=== PATIENT | male | born 1970 | race Caucasian/White ===

== ENCOUNTER 2017-05-27 17:35 | Inpatient (IN) | payer MEDICAID, OTHER ==
[2017-05-27] MEDS: ONDANSETRON 4 MG INJ IV (19:56)
[2017-05-27] MEDS: DEXAMETHASONE 10 MG/ML 1 ML INJ IV (19:56)
[2017-05-27] MEDS: morphine 10 MG INJ IV (19:56)
[2017-05-27] MEDS: SODIUM CHLORIDE 0.9% 1L BAG IV* (19:56)
[2017-05-27 20:38] LABS: ADD MAN DIFF? NO
[2017-05-27 20:40] LABS: BASOPHILS % 0.3 % (0.0-2.0); EOSINOPHILS % 0.1 % (0.0-7.0); HEMATOCRIT 38.6 % (42.0-52.0); HEMOGLOBIN 12.9 g/dl (14.0-18.0); LYMPHOCYTES # 0.8 10^3/ul (0.8-2.9); LYMPHOCYTES % 7.5 % (15.0-51.0); MEAN CORPUSCULAR HEMOGLOBIN 27.8 pg (29.0-33.0); MEAN CORPUSCULAR HGB CONC 33.4 g/dl (32.0-37.0); MEAN CORPUSCULAR VOLUME 83.2 fl (82.0-101.0); MEAN PLATELET VOLUME 10.2 fl (7.4-10.4); MONOCYTE # 0.8 10^3/ul (0.3-0.9); NEUTROPHIL # 9.3 10^3/ul (1.6-7.5); NEUTROPHILS % 84.5 % (39.0-77.0); PLATELET COUNT 313 10^3/UL (140-415); RED BLOOD COUNT 4.64 10^6/ul (4.70-6.10); RED CELL DISTRIBUTION WIDTH 11.5 % (11.5-14.5)
[2017-05-27] MEDS: IOHEXOL 300MG/ML 150 ML BTL (20:50)
[2017-05-27] MEDS: SOD CHLORIDE 0.9% 100 ML (20:50)
[2017-05-27 20:56] LABS: LACTIC ACID 1.1 mmol/L (0.5-2.0)
[2017-05-27 20:56] LABS: INR 0.99; PARTIAL THROMBOPLASTIN TIME 26.1 Sec (25.0-35.0); PROTIME 13.2 Sec (11.9-14.9)
[2017-05-27 21:06] LABS: ALANINE AMINOTRANSFERASE 30 IU/L (13-69); ALBUMIN 3.1 g/dl (3.3-4.9); ALBUMIN/GLOBULIN RATIO 0.77; ALKALINE PHOSPHATASE 123 IU/L (42-121); ANION GAP 18 (8-16); ASPARTATE AMINO TRANSFERASE 21 IU/L (15-46); BILIRUBIN,INDIRECT 0.1 mg/dl (0-1.1); BILIRUBIN,TOTAL 0.1 mg/dl (0.2-1.3); BLOOD UREA NITROGEN 21 mg/dl (7-20); CALCIUM 8.1 mg/dl (8.4-10.2); CARBON DIOXIDE 19 mmol/L (21-31); CHLORIDE 98 mmol/L (97-110); CREATININE 0.64 mg/dl (0.61-1.24); GLUCOSE 366 mg/dl (70-220); POTASSIUM 4.3 mmol/L (3.5-5.1); SODIUM 131 mmol/L (135-144); TOTAL PROTEIN 7.1 g/dl (6.1-8.1)
[2017-05-27] MEDS: AMPICILLIN/SULB 3 GM/NS (PMX) 100 ML IVPB (21:10)
[2017-05-27 21:19] LABS: TROPONIN-I < 0.012 ng/ml (0.00-0.12)
[2017-05-27] MEDS: LIDOCAINE 2%/EPI MPF (SDV) 20 ML VIAL INJ (22:23)
[2017-05-27 23:48] LABS: LACTIC ACID 0.9 mmol/L (0.5-2.0)
[2017-05-28] MEDS ORDERED: ONDANSETRON 4 MG INJ IV (00:30)
[2017-05-28] MEDS ORDERED: ALBUTEROL/IPRATROPIUM (NEB) 3 ML AMP NEB (00:30)
[2017-05-28] MEDS ORDERED: DEXTROSE 50% 50 ML SYRINGE IV ×2 (00:30)
[2017-05-28] MEDS ORDERED: GLUCOSE GEL 15 GRAM TUBE PO ×2 (00:30)
[2017-05-28] MEDS ORDERED: GLUCAGON 1 MG INJ IM (00:30)
[2017-05-28] MEDS ORDERED: GLUCOSE GEL 15 GRAM TUBE BUCCAL (00:30)
[2017-05-28] MEDS: SOD CHLORIDE 0.9% 1,000 ML IV (01:20)
[2017-05-28] MEDS: CLINDAMYCIN 600 MG/D5W (PMX) 50 ML IVPB (02:20)
[2017-05-28] MEDS: morphine 2 MG INJ IV ×4 (02:21→17:44)
[2017-05-28] MEDS: INSULIN ASPART [NOVOLOG] 3 ML PEN SC ×9 (02:24→20:49)
[2017-05-28] MEDS: INSULIN GLARGINE [LANtus] 3 ML PEN SC ×2 (02:25→20:42)
[2017-05-28] MEDS: ACCU-CHEK XX (02:33)
[2017-05-28 05:20] LABS: ADD MAN DIFF? NO
[2017-05-28] MEDS: DEXAMETHASONE 10 MG/ML 1 ML INJ IV ×2 (05:30→12:08)
[2017-05-28 05:37] LABS: BASOPHILS % 0.1 % (0.0-2.0); HEMATOCRIT 35.2 % (42.0-52.0); LYMPHOCYTES % 9.6 % (15.0-51.0); MEAN CORPUSCULAR HEMOGLOBIN 28.2 pg (29.0-33.0); MEAN CORPUSCULAR HGB CONC 34.1 g/dl (32.0-37.0); MEAN CORPUSCULAR VOLUME 82.6 fl (82.0-101.0); MEAN PLATELET VOLUME 10.5 fl (7.4-10.4); MONOCYTE # 0.2 10^3/ul (0.3-0.9); MONOCYTES % 2.1 % (0.0-11.0); NEUTROPHIL # 8.7 10^3/ul (1.6-7.5); NEUTROPHILS % 87.4 % (39.0-77.0); PLATELET COUNT 310 10^3/UL (140-415); RED BLOOD COUNT 4.26 10^6/ul (4.70-6.10); RED CELL DISTRIBUTION WIDTH 11.5 % (11.5-14.5)
[2017-05-28 05:37] LABS: WHITE BLOOD COUNT 9.9 10^3/ul (4.8-10.8)
[2017-05-28 05:52] LABS: ALANINE AMINOTRANSFERASE 30 IU/L (13-69); ALBUMIN 2.9 g/dl (3.3-4.9); ALBUMIN/GLOBULIN RATIO 0.72; ALKALINE PHOSPHATASE 107 IU/L (42-121); ANION GAP 16 (8-16); ASPARTATE AMINO TRANSFERASE 17 IU/L (15-46); BILIRUBIN,INDIRECT 0.1 mg/dl (0-1.1); BILIRUBIN,TOTAL 0.1 mg/dl (0.2-1.3); BLOOD UREA NITROGEN 18 mg/dl (7-20); CALCIUM 8.2 mg/dl (8.4-10.2); CARBON DIOXIDE 23 mmol/L (21-31); CHLORIDE 102 mmol/L (97-110); CREATININE 0.71 mg/dl (0.61-1.24); GLUCOSE 334 mg/dl (70-220); POTASSIUM 4.5 mmol/L (3.5-5.1); SODIUM 136 mmol/L (135-144); TOTAL PROTEIN 6.9 g/dl (6.1-8.1)
[2017-05-28] MEDS: CEFEPIME 1GM/50 ML (PMX) 50 ML IVPB ×2 (08:18→20:40)
[2017-05-28 16:08] LABS: HEMOGLOBIN A1C 12.4 % (0-5.9)
[2017-05-28 21:24] LABS: GLUCOSE 521 mg/dl (70-220)
[2017-05-29] MEDS: morphine 2 MG INJ IV ×6 (01:33→20:25)
[2017-05-29] MEDS: ACCU-CHEK XX (03:10)
[2017-05-29] MEDS: INSULIN ASPART [NOVOLOG] 3 ML PEN SC ×8 (03:52→20:49)
[2017-05-29 04:09] LABS: GLUCOSE 435 mg/dl (70-220)
[2017-05-29] MEDS ORDERED: IOHEXOL 300MG/ML 150 ML BTL (08:18)
[2017-05-29] MEDS ORDERED: SOD CHLORIDE 0.9% 100 ML (08:18)
[2017-05-29] MEDS: CEFEPIME 1GM/50 ML (PMX) 50 ML IVPB (09:25)
[2017-05-29] MEDS ORDERED: morphine 2 MG INJ IV (14:30)
[2017-05-29] MEDS: AMOXICILLIN/CLAV 875 MG TAB PO (20:43)
[2017-05-29] MEDS: INSULIN GLARGINE [LANtus] 3 ML PEN SC (20:48)
[2017-05-30] MEDS: morphine 2 MG INJ IV ×6 (00:49→20:28)
[2017-05-30] MEDS: ACCU-CHEK XX (01:19)
[2017-05-30 06:09] LABS: ADD MAN DIFF? NO
[2017-05-30 06:15] LABS: WHITE BLOOD COUNT 8.4 10^3/ul (4.8-10.8)
[2017-05-30 06:15] LABS: BASOPHILS % 0.5 % (0.0-2.0); EOSINOPHILS # 0.2 10^3/ul (0.0-0.5); EOSINOPHILS % 2.5 % (0.0-7.0); HEMATOCRIT 32.8 % (42.0-52.0); HEMOGLOBIN 11.2 g/dl (14.0-18.0); LYMPHOCYTES # 2.8 10^3/ul (0.8-2.9); LYMPHOCYTES % 33.3 % (15.0-51.0); MEAN CORPUSCULAR HEMOGLOBIN 28.1 pg (29.0-33.0); MEAN CORPUSCULAR HGB CONC 34.1 g/dl (32.0-37.0); MEAN CORPUSCULAR VOLUME 82.4 fl (82.0-101.0); MEAN PLATELET VOLUME 10.4 fl (7.4-10.4); MONOCYTE # 0.9 10^3/ul (0.3-0.9); MONOCYTES % 10.5 % (0.0-11.0); NEUTROPHIL # 4.3 10^3/ul (1.6-7.5); NEUTROPHILS % 51.2 % (39.0-77.0); PLATELET COUNT 316 10^3/UL (140-415); RED BLOOD COUNT 3.98 10^6/ul (4.70-6.10); RED CELL DISTRIBUTION WIDTH 11.9 % (11.5-14.5)
[2017-05-30 08:10] LABS: ANION GAP 12 (8-16); BLOOD UREA NITROGEN 16 mg/dl (7-20); CALCIUM 7.9 mg/dl (8.4-10.2); CARBON DIOXIDE 32 mmol/L (21-31); CHLORIDE 100 mmol/L (97-110); CREATININE 0.64 mg/dl (0.61-1.24); GLUCOSE 203 mg/dl (70-220); MAGNESIUM 1.8 mg/dl (1.7-2.5); PHOSPHORUS 3.7 mg/dl (2.5-4.9); POTASSIUM 4.2 mmol/L (3.5-5.1); SODIUM 140 mmol/L (135-144)
[2017-05-30] MEDS: AMOXICILLIN/CLAV 875 MG TAB PO ×2 (08:10→20:28)
[2017-05-30] MEDS: INSULIN ASPART [NOVOLOG] 3 ML PEN SC ×7 (08:11→20:33)
[2017-05-30] MEDS: INSULIN GLARGINE [LANtus] 3 ML PEN SC (20:28)
[2017-05-31] MEDS: morphine 2 MG INJ IV ×3 (00:33→07:52)
[2017-05-31] MEDS: ACCU-CHEK XX (02:00)
[2017-05-31] MEDS: AMOXICILLIN/CLAV 875 MG TAB PO ×2 (07:52→20:59)
[2017-05-31] MEDS: INSULIN ASPART [NOVOLOG] 3 ML PEN SC ×7 (08:07→21:04)
[2017-05-31] MEDS: HYDROCODONE/APAP (5/325) TAB PO ×3 (15:33→21:50)
[2017-05-31] MEDS ORDERED: morphine 2 MG INJ IV (16:30)
[2017-05-31] MEDS: INSULIN GLARGINE [LANtus] 3 ML PEN SC (21:04)
[2017-06-01] MEDS: HYDROCODONE/APAP (5/325) TAB PO ×2 (02:41→15:31)
[2017-06-01] MEDS: ACCU-CHEK XX (02:41)
[2017-06-01] MEDS: INSULIN ASPART [NOVOLOG] 3 ML PEN SC ×7 (02:56→17:09)
[2017-06-01] MEDS: AMOXICILLIN/CLAV 875 MG TAB PO (08:58)
== END 2017-06-01 21:00 | disposition home or self-care (01) | DRG 133 ==
LOC: ICU 23:03 → E/R 17:35 → MS2 05-28 11:10
PROC: 0C9PXZZ Drainage of Tonsils, External Approach (ICD-10-PCS; principal; 2017-05-27)
DX: J36 Peritonsillar abscess (principal); E87.1 Hypo-osmolality and hyponatremia; E11.65 Type 2 diabetes mellitus with hyperglycemia; E04.1 Nontoxic single thyroid nodule; D64.9 Anemia, unspecified
CPT/HCPCS: 36415; 70491; 71045; 76536; 80048; 80053; 82947; 82962; 83036; 83605; 83735; 84100; 84443; 84484; 85025; 85610; 85730; 87040; 87081; 93005; 96374; 96375; 99291-25

== ENCOUNTER 2017-11-10 00:19 | Inpatient (IN) | payer OTHER, MEDICAID ==
[2017-11-10 02:55] LABS: ADD MAN DIFF? NO
[2017-11-10 02:57] LABS: BASOPHIL # 0.1 10^3/ul (0.0-0.1); BASOPHILS % 0.5 % (0.0-2.0); EOSINOPHILS # 0.4 10^3/ul (0.0-0.5); EOSINOPHILS % 2.8 % (0.0-7.0); HEMATOCRIT 35.5 % (42.0-52.0); HEMOGLOBIN 12.2 g/dl (14.0-18.0); LYMPHOCYTES # 1.7 10^3/ul (0.8-2.9); LYMPHOCYTES % 13.4 % (15.0-51.0); MEAN CORPUSCULAR HEMOGLOBIN 28.1 pg (29.0-33.0); MEAN CORPUSCULAR HGB CONC 34.4 g/dl (32.0-37.0); MEAN CORPUSCULAR VOLUME 81.8 fl (82.0-101.0); MEAN PLATELET VOLUME 10.2 fl (7.4-10.4); MONOCYTES % 7.9 % (0.0-11.0); NEUTROPHIL # 9.5 10^3/ul (1.6-7.5); PLATELET COUNT 397 10^3/UL (140-415); RED BLOOD COUNT 4.34 10^6/ul (4.70-6.10); RED CELL DISTRIBUTION WIDTH 11.8 % (11.5-14.5)
[2017-11-10 02:57] LABS: WHITE BLOOD COUNT 12.9 10^3/ul (4.8-10.8)
[2017-11-10 03:01] LABS: LACTIC ACID 1.7 mmol/L (0.5-2.0)
[2017-11-10] MEDS: ONDANSETRON 4 MG INJ IV (03:01)
[2017-11-10] MEDS: morphine 4 MG/ML VIAL IV (03:01)
[2017-11-10 03:02] LABS: ALANINE AMINOTRANSFERASE 21 IU/L (13-69); ALBUMIN 3.8 g/dl (3.3-4.9); ALBUMIN/GLOBULIN RATIO 0.88; ALKALINE PHOSPHATASE 109 IU/L (42-121); ANION GAP 16 (8-16); ASPARTATE AMINO TRANSFERASE 27 IU/L (15-46); BILIRUBIN,INDIRECT 0.5 mg/dl (0-1.1); BILIRUBIN,TOTAL 0.5 mg/dl (0.2-1.3); BLOOD UREA NITROGEN 17 mg/dl (7-20); CALCIUM 9.3 mg/dl (8.4-10.2); CARBON DIOXIDE 24 mmol/L (21-31); CHLORIDE 97 mmol/L (97-110); CREATININE 0.69 mg/dl (0.61-1.24); POTASSIUM 4.9 mmol/L (3.5-5.1); SODIUM 132 mmol/L (135-144); TOTAL PROTEIN 8.1 g/dl (6.1-8.1)
[2017-11-10 03:11] LABS: GLUCOSE 429 mg/dl (70-220)
[2017-11-10 03:16] LABS: INR 0.94; PROTIME 12.7 Sec (11.9-14.9)
[2017-11-10 03:17] LABS: PARTIAL THROMBOPLASTIN TIME 29.5 Sec (25.0-35.0)
[2017-11-10] MEDS: INSULIN REGULAR, HUMAN 100 UNIT/1 ML 3ML VIAL IV (04:24)
[2017-11-10] MEDS ORDERED: GLUCOSE GEL 15 GRAM TUBE BUCCAL (04:30)
[2017-11-10] MEDS ORDERED: ONDANSETRON 4 MG INJ IV (04:30)
[2017-11-10] MEDS ORDERED: VANCOMYCIN IV PER PHARMACY XX (04:30)
[2017-11-10] MEDS ORDERED: NACL 0.9% 3 ML SYG IV (04:30)
[2017-11-10] MEDS ORDERED: DEXTROSE 50% 50 ML SYRINGE IV ×2 (04:30)
[2017-11-10] MEDS ORDERED: GLUCAGON 1 MG INJ IM (04:30)
[2017-11-10] MEDS ORDERED: GLUCOSE GEL 15 GRAM TUBE PO ×2 (04:30)
[2017-11-10] MEDS: SOD CHLORIDE 0.9% 1,000 ML IV (04:37)
[2017-11-10 05:16] LABS: ADD UMIC YES; UR ASCORBIC ACID NEGATIVE (NEGATIVE); UR BILIRUBIN (Dip) NEGATIVE (NEGATIVE); UR BLOOD (Dip) 2+ mg/dL (NEGATIVE); UR CLARITY CLEAR (CLEAR); UR COLOR STRAW (YELLOW); UR GLUCOSE (Dip) 3+ mg/dL (NEGATIVE); UR KETONES (Dip) 1+ mg/dL (NEGATIVE); UR LEUKOCYTE ESTERASE (Dip) NEGATIVE Leu/ul (NEGATIVE); UR NITRITE (Dip) NEGATIVE (NEGATIVE); UR RBC 13 /HPF (0-5); UR SPECIFIC GRAVITY (Dip) 1.023 (1.003-1.030); UR TOTAL PROTEIN (Dip) 2+ mg/dl (NEGATIVE); UR UROBILINOGEN (Dip) NEGATIVE (NEGATIVE); UR WBC 1 /HPF (0-5)
[2017-11-10] MEDS: HYDROCODONE/APAP (5/325) TAB PO ×4 (06:11→23:04)
[2017-11-10 07:53] LABS: LACTIC ACID 1.2 mmol/L (0.5-2.0)
[2017-11-10] MEDS: ENOXAPARIN 30 MG/0.3 ML SYG SC (08:33)
[2017-11-10] MEDS: MULTIVITAMINS THERAPEUTIC TAB PO (08:33)
[2017-11-10] MEDS: INSULIN ASPART [NOVOLOG] 3 ML PEN SC ×8 (08:47→21:33)
[2017-11-10] MEDS: VANCOMYCIN 1.5 GM in SOD CHLORIDE 0.9% 250 ML IVPB ×2 (09:28→21:32)
[2017-11-10] MEDS: INSULIN GLARGINE [LANTus] (100 UNITS/ML) SYG SC (10:36)
[2017-11-10 10:52] LABS: LACTIC ACID 1.3 mmol/L (0.5-2.0)
[2017-11-10] MEDS: LISINOPRIL 5 MG TAB PO (11:16)
[2017-11-10] MEDS ORDERED: VANCOMYCIN 1.25 GM in SOD CHLORIDE 0.9% 250 ML IVPB ×2 (14:00→16:00)
[2017-11-11] MEDS: ACCU-CHEK XX (02:00)
[2017-11-11] MEDS: hydrALAzine 20 MG INJ IV (03:07)
[2017-11-11 06:31] LABS: ADD MAN DIFF? NO
[2017-11-11 06:37] LABS: WHITE BLOOD COUNT 11.9 10^3/ul (4.8-10.8)
[2017-11-11 06:37] LABS: BASOPHIL # 0.1 10^3/ul (0.0-0.1); BASOPHILS % 0.5 % (0.0-2.0); EOSINOPHILS # 0.5 10^3/ul (0.0-0.5); HEMATOCRIT 38.3 % (42.0-52.0); HEMOGLOBIN 13.1 g/dl (14.0-18.0); LYMPHOCYTES % 16.7 % (15.0-51.0); MEAN CORPUSCULAR HEMOGLOBIN 27.8 pg (29.0-33.0); MEAN CORPUSCULAR HGB CONC 34.2 g/dl (32.0-37.0); MEAN CORPUSCULAR VOLUME 81.3 fl (82.0-101.0); MONOCYTE # 0.9 10^3/ul (0.3-0.9); MONOCYTES % 7.1 % (0.0-11.0); NEUTROPHIL # 8.4 10^3/ul (1.6-7.5); NEUTROPHILS % 70.4 % (39.0-77.0); PLATELET COUNT 400 10^3/UL (140-415); RED BLOOD COUNT 4.71 10^6/ul (4.70-6.10); RED CELL DISTRIBUTION WIDTH 11.7 % (11.5-14.5)
[2017-11-11 07:10] LABS: ALANINE AMINOTRANSFERASE 26 IU/L (13-69); ALBUMIN 3.4 g/dl (3.3-4.9); ALBUMIN/GLOBULIN RATIO 0.87; ALKALINE PHOSPHATASE 86 IU/L (42-121); ANION GAP 13 (8-16); ASPARTATE AMINO TRANSFERASE 27 IU/L (15-46); BILIRUBIN,INDIRECT 0.4 mg/dl (0-1.1); BILIRUBIN,TOTAL 0.4 mg/dl (0.2-1.3); BLOOD UREA NITROGEN 11 mg/dl (7-20); CALCIUM 8.9 mg/dl (8.4-10.2); CARBON DIOXIDE 30 mmol/L (21-31); CHLORIDE 95 mmol/L (97-110); CREATININE 0.71 mg/dl (0.61-1.24); GLUCOSE 253 mg/dl (70-220); MAGNESIUM 1.7 mg/dl (1.7-2.5); POTASSIUM 4.6 mmol/L (3.5-5.1); SODIUM 133 mmol/L (135-144); TOTAL PROTEIN 7.3 g/dl (6.1-8.1)
[2017-11-11] MEDS: MULTIVITAMINS THERAPEUTIC TAB PO (08:43)
[2017-11-11] MEDS: HYDROCODONE/APAP (5/325) TAB PO ×3 (08:43→20:53)
[2017-11-11] MEDS: LISINOPRIL 5 MG TAB PO (08:44)
[2017-11-11] MEDS: ENOXAPARIN 30 MG/0.3 ML SYG SC (08:46)
[2017-11-11] MEDS: INSULIN ASPART [NOVOLOG] 3 ML PEN SC ×7 (08:48→20:55)
[2017-11-11] MEDS: INSULIN GLARGINE [LANTus] (100 UNITS/ML) SYG SC ×2 (08:57→12:38)
[2017-11-11] MEDS: VANCOMYCIN 1.5 GM in SOD CHLORIDE 0.9% 250 ML IVPB ×2 (09:02→22:08)
[2017-11-11] MEDS: SOD CHLORIDE 0.9% 500 ML IV (12:46)
[2017-11-11] MEDS: CEFTRIAXONE 1 GM/50 ML (PMX) 50 ML IVPB (16:20)
[2017-11-11] MEDS ORDERED: HYDROCODONE/APAP (5/325) TAB PO (19:00)
[2017-11-11 21:45] LABS: VANCOMYCIN,TROUGH 9.3 ug/ml (10.0-20.0)
[2017-11-12] MEDS: DOCUSATE SODIUM 100 MG CAP PO (01:32)
[2017-11-12] MEDS: HYDROCODONE/APAP (5/325) TAB PO ×3 (01:32→17:37)
[2017-11-12] MEDS: ACCU-CHEK XX (01:59)
[2017-11-12] MEDS: VANCOMYCIN 1.25 GM in SOD CHLORIDE 0.9% 250 ML IVPB ×3 (06:14→22:34)
[2017-11-12 06:39] LABS: ADD MAN DIFF? NO
[2017-11-12 06:41] LABS: WHITE BLOOD COUNT 11.9 10^3/ul (4.8-10.8)
[2017-11-12 06:41] LABS: BASOPHIL # 0.1 10^3/ul (0.0-0.1); BASOPHILS % 0.7 % (0.0-2.0); EOSINOPHILS # 0.5 10^3/ul (0.0-0.5); EOSINOPHILS % 4.5 % (0.0-7.0); HEMATOCRIT 37.5 % (42.0-52.0); HEMOGLOBIN 12.7 g/dl (14.0-18.0); LYMPHOCYTES # 2.6 10^3/ul (0.8-2.9); MEAN CORPUSCULAR HEMOGLOBIN 27.7 pg (29.0-33.0); MEAN CORPUSCULAR HGB CONC 33.9 g/dl (32.0-37.0); MEAN CORPUSCULAR VOLUME 81.7 fl (82.0-101.0); MEAN PLATELET VOLUME 10.2 fl (7.4-10.4); MONOCYTES % 8.2 % (0.0-11.0); NEUTROPHIL # 7.5 10^3/ul (1.6-7.5); NEUTROPHILS % 63.2 % (39.0-77.0); PLATELET COUNT 422 10^3/UL (140-415); RED BLOOD COUNT 4.59 10^6/ul (4.70-6.10); RED CELL DISTRIBUTION WIDTH 11.9 % (11.5-14.5)
[2017-11-12 07:18] LABS: ANION GAP 14 (8-16); BLOOD UREA NITROGEN 16 mg/dl (7-20); CALCIUM 8.7 mg/dl (8.4-10.2); CARBON DIOXIDE 28 mmol/L (21-31); CHLORIDE 101 mmol/L (97-110); CREATININE 0.75 mg/dl (0.61-1.24); GLUCOSE 225 mg/dl (70-220); POTASSIUM 5.2 mmol/L (3.5-5.1); SODIUM 138 mmol/L (135-144)
[2017-11-12] MEDS: INSULIN ASPART [NOVOLOG] 3 ML PEN SC ×7 (09:05→20:54)
[2017-11-12] MEDS: ENOXAPARIN 30 MG/0.3 ML SYG SC (09:06)
[2017-11-12] MEDS: INSULIN GLARGINE [LANTus] (100 UNITS/ML) SYG SC ×2 (09:06→13:08)
[2017-11-12] MEDS: LISINOPRIL 5 MG TAB PO (09:07)
[2017-11-12] MEDS: MULTIVITAMINS THERAPEUTIC TAB PO (09:07)
[2017-11-12] MEDS: NA POLYST SULFON 15 GM/60 ML BTL PO (11:29)
[2017-11-12] MEDS: LOSARTAN 25 MG TAB PO (11:29)
[2017-11-12] MEDS: metFORMIN 500 MG TAB PO (17:23)
[2017-11-13] MEDS: ACCU-CHEK XX (02:41)
[2017-11-13] MEDS: HYDROCODONE/APAP (5/325) TAB PO ×3 (04:22→18:27)
[2017-11-13] MEDS: VANCOMYCIN 1.25 GM in SOD CHLORIDE 0.9% 250 ML IVPB (05:56)
[2017-11-13 08:12] LABS: ADD MAN DIFF? NO
[2017-11-13 08:23] LABS: BASOPHIL # 0.1 10^3/ul (0.0-0.1); BASOPHILS % 0.6 % (0.0-2.0); EOSINOPHILS # 0.4 10^3/ul (0.0-0.5); EOSINOPHILS % 4.4 % (0.0-7.0); HEMATOCRIT 35.8 % (42.0-52.0); HEMOGLOBIN 12.2 g/dl (14.0-18.0); IMMATURE GRANS #M 0.15 10^3/ul; IMMATURE GRANS % (M) 1.6 %; LYMPHOCYTES # 2.1 10^3/ul (0.8-2.9); LYMPHOCYTES % 21.9 % (15.0-51.0); MEAN CORPUSCULAR HEMOGLOBIN 28.1 pg (29.0-33.0); MEAN CORPUSCULAR HGB CONC 34.1 g/dl (32.0-37.0); MEAN CORPUSCULAR VOLUME 82.5 fl (82.0-101.0); MEAN PLATELET VOLUME 10.4 fl (7.4-10.4); MONOCYTE # 0.6 10^3/ul (0.3-0.9); MONOCYTES % 6.7 % (0.0-11.0); NEUTROPHIL # 6.2 10^3/ul (1.6-7.5); NEUTROPHILS % 64.8 % (39.0-77.0); PLATELET COUNT 388 10^3/UL (140-415); RED BLOOD COUNT 4.34 10^6/ul (4.70-6.10); RED CELL DISTRIBUTION WIDTH 11.7 % (11.5-14.5)
[2017-11-13 08:23] LABS: WHITE BLOOD COUNT 9.5 10^3/ul (4.8-10.8)
[2017-11-13] MEDS: metFORMIN 500 MG TAB PO ×2 (08:29→17:26)
[2017-11-13] MEDS: LOSARTAN 25 MG TAB PO (08:30)
[2017-11-13] MEDS: MULTIVITAMINS THERAPEUTIC TAB PO (08:30)
[2017-11-13] MEDS: INSULIN GLARGINE [LANTus] (100 UNITS/ML) SYG SC (08:34)
[2017-11-13] MEDS: ENOXAPARIN 30 MG/0.3 ML SYG SC (08:34)
[2017-11-13] MEDS: INSULIN ASPART [NOVOLOG] 3 ML PEN SC ×7 (08:34→20:29)
[2017-11-13 08:44] LABS: IRON 40 ug/dl (35-150)
[2017-11-13 08:54] LABS: % IRON SATURATION 16 % SAT (22-52); TOTAL IRON BINDING CAPACITY 243 ug/dl (241-421)
[2017-11-13 09:36] LABS: ANION GAP 12 (8-16); BLOOD UREA NITROGEN 12 mg/dl (7-20); CALCIUM 8.4 mg/dl (8.4-10.2); CARBON DIOXIDE 28 mmol/L (21-31); CHLORIDE 100 mmol/L (97-110); CREATININE 0.71 mg/dl (0.61-1.24); GLUCOSE 271 mg/dl (70-220); MAGNESIUM 1.9 mg/dl (1.7-2.5); SODIUM 136 mmol/L (135-144)
[2017-11-13 14:11] LABS: VANCOMYCIN,TROUGH 17.7 ug/ml (10.0-20.0)
[2017-11-13] MEDS: SOD CHLORIDE 0.9% 500 ML IV (17:12)
[2017-11-13] MEDS: VANCOMYCIN 1 GM 250 ML IVPB (18:27)
[2017-11-13] MEDS: CEFTRIAXONE 2 GM/50 ML (PMX) 50 ML IVPB (21:49)
[2017-11-14] MEDS: VANCOMYCIN 1 GM 250 ML IVPB ×3 (01:59→18:04)
[2017-11-14] MEDS: ACCU-CHEK XX (02:00)
[2017-11-14 08:31] LABS: ADD MAN DIFF? NO
[2017-11-14 08:36] LABS: BASOPHIL # 0.1 10^3/ul (0.0-0.1); BASOPHILS % 0.7 % (0.0-2.0); EOSINOPHILS # 0.4 10^3/ul (0.0-0.5); EOSINOPHILS % 4.3 % (0.0-7.0); HEMATOCRIT 37.1 % (42.0-52.0); HEMOGLOBIN 12.8 g/dl (14.0-18.0); IMMATURE GRANS #M 0.12 10^3/ul; IMMATURE GRANS % (M) 1.2 %; LYMPHOCYTES # 2.5 10^3/ul (0.8-2.9); LYMPHOCYTES % 25.9 % (15.0-51.0); MEAN CORPUSCULAR HEMOGLOBIN 28.3 pg (29.0-33.0); MEAN CORPUSCULAR HGB CONC 34.5 g/dl (32.0-37.0); MEAN CORPUSCULAR VOLUME 81.9 fl (82.0-101.0); MEAN PLATELET VOLUME 10.2 fl (7.4-10.4); MONOCYTE # 0.8 10^3/ul (0.3-0.9); MONOCYTES % 8.1 % (0.0-11.0); NEUTROPHIL # 5.8 10^3/ul (1.6-7.5); NEUTROPHILS % 59.8 % (39.0-77.0); PLATELET COUNT 406 10^3/UL (140-415); RED BLOOD COUNT 4.53 10^6/ul (4.70-6.10); RED CELL DISTRIBUTION WIDTH 11.8 % (11.5-14.5)
[2017-11-14 08:36] LABS: WHITE BLOOD COUNT 9.7 10^3/ul (4.8-10.8)
[2017-11-14 08:49] LABS: ANION GAP 13 (8-16); BLOOD UREA NITROGEN 13 mg/dl (7-20); CALCIUM 8.8 mg/dl (8.4-10.2); CARBON DIOXIDE 25 mmol/L (21-31); CHLORIDE 103 mmol/L (97-110); CREATININE 0.64 mg/dl (0.61-1.24); GLUCOSE 217 mg/dl (70-220); SODIUM 137 mmol/L (135-144)
[2017-11-14] MEDS: INSULIN ASPART [NOVOLOG] 3 ML PEN SC ×7 (09:06→20:41)
[2017-11-14] MEDS: metFORMIN 500 MG TAB PO ×2 (09:07→17:18)
[2017-11-14] MEDS: INSULIN GLARGINE [LANTus] (100 UNITS/ML) SYG SC (09:08)
[2017-11-14] MEDS: HYDROCODONE/APAP (5/325) TAB PO (09:08)
[2017-11-14] MEDS: MULTIVITAMINS THERAPEUTIC TAB PO (09:08)
[2017-11-14] MEDS: ENOXAPARIN 30 MG/0.3 ML SYG SC (09:10)
[2017-11-14] MEDS: BISACODYL (EC) 5 MG TAB PO (10:29)
[2017-11-14] MEDS: LOSARTAN 25 MG TAB PO (10:29)
[2017-11-14] MEDS: CEFTRIAXONE 2 GM/50 ML (PMX) 50 ML IVPB (17:03)
[2017-11-15 00:59] LABS: ADD MAN DIFF? NO
[2017-11-15 01:03] LABS: WHITE BLOOD COUNT 10.2 10^3/ul (4.8-10.8)
[2017-11-15 01:03] LABS: BASOPHIL # 0.1 10^3/ul (0.0-0.1); BASOPHILS % 0.8 % (0.0-2.0); EOSINOPHILS # 0.5 10^3/ul (0.0-0.5); EOSINOPHILS % 4.9 % (0.0-7.0); HEMATOCRIT 36.1 % (42.0-52.0); HEMOGLOBIN 12.2 g/dl (14.0-18.0); IMMATURE GRANS #M 0.13 10^3/ul; IMMATURE GRANS % (M) 1.3 %; LYMPHOCYTES # 2.7 10^3/ul (0.8-2.9); LYMPHOCYTES % 26.7 % (15.0-51.0); MEAN CORPUSCULAR HEMOGLOBIN 27.9 pg (29.0-33.0); MEAN CORPUSCULAR HGB CONC 33.8 g/dl (32.0-37.0); MEAN CORPUSCULAR VOLUME 82.6 fl (82.0-101.0); MEAN PLATELET VOLUME 9.8 fl (7.4-10.4); MONOCYTE # 0.7 10^3/ul (0.3-0.9); MONOCYTES % 7.1 % (0.0-11.0); NEUTROPHILS % 59.2 % (39.0-77.0); PLATELET COUNT 418 10^3/UL (140-415); RED BLOOD COUNT 4.37 10^6/ul (4.70-6.10); RED CELL DISTRIBUTION WIDTH 11.9 % (11.5-14.5)
[2017-11-15] MEDS: ACCU-CHEK XX (01:28)
[2017-11-15] MEDS: VANCOMYCIN 1 GM 250 ML IVPB ×2 (01:28→08:44)
[2017-11-15 07:37] LABS: ADD MAN DIFF? NO
[2017-11-15 07:40] LABS: WHITE BLOOD COUNT 9.6 10^3/ul (4.8-10.8)
[2017-11-15 07:40] LABS: BASOPHIL # 0.1 10^3/ul (0.0-0.1); BASOPHILS % 0.7 % (0.0-2.0); EOSINOPHILS # 0.5 10^3/ul (0.0-0.5); EOSINOPHILS % 4.8 % (0.0-7.0); HEMATOCRIT 36.4 % (42.0-52.0); HEMOGLOBIN 12.2 g/dl (14.0-18.0); IMMATURE GRANS #M 0.12 10^3/ul; IMMATURE GRANS % (M) 1.3 %; LYMPHOCYTES # 2.4 10^3/ul (0.8-2.9); LYMPHOCYTES % 25.4 % (15.0-51.0); MEAN CORPUSCULAR HEMOGLOBIN 27.5 pg (29.0-33.0); MEAN CORPUSCULAR HGB CONC 33.5 g/dl (32.0-37.0); MEAN CORPUSCULAR VOLUME 82.2 fl (82.0-101.0); MEAN PLATELET VOLUME 10.1 fl (7.4-10.4); MONOCYTE # 0.6 10^3/ul (0.3-0.9); MONOCYTES % 6.3 % (0.0-11.0); NEUTROPHIL # 5.9 10^3/ul (1.6-7.5); NEUTROPHILS % 61.5 % (39.0-77.0); PLATELET COUNT 421 10^3/UL (140-415); RED BLOOD COUNT 4.43 10^6/ul (4.70-6.10); RED CELL DISTRIBUTION WIDTH 11.9 % (11.5-14.5)
[2017-11-15] MEDS: MULTIVITAMINS THERAPEUTIC TAB PO (08:34)
[2017-11-15] MEDS: metFORMIN 500 MG TAB PO ×2 (08:34→18:33)
[2017-11-15] MEDS: LOSARTAN 25 MG TAB PO (08:35)
[2017-11-15] MEDS: ENOXAPARIN 30 MG/0.3 ML SYG SC (08:36)
[2017-11-15] MEDS: INSULIN ASPART [NOVOLOG] 3 ML PEN SC ×7 (08:37→20:16)
[2017-11-15] MEDS: INSULIN GLARGINE [LANTus] (100 UNITS/ML) SYG SC (08:38)
[2017-11-15] MEDS: ACETAMINOPHEN 325 MG TAB PO (12:41)
[2017-11-15 13:11] LABS: ADD MAN DIFF? NO
[2017-11-15 13:14] LABS: WHITE BLOOD COUNT 9.4 10^3/ul (4.8-10.8)
[2017-11-15 13:14] LABS: BASOPHIL # 0.1 10^3/ul (0.0-0.1); EOSINOPHILS # 0.4 10^3/ul (0.0-0.5); EOSINOPHILS % 4.2 % (0.0-7.0); HEMATOCRIT 35.9 % (42.0-52.0); HEMOGLOBIN 12.2 g/dl (14.0-18.0); IMMATURE GRANS #M 0.11 10^3/ul; IMMATURE GRANS % (M) 1.2 %; LYMPHOCYTES # 2.4 10^3/ul (0.8-2.9); LYMPHOCYTES % 25.5 % (15.0-51.0); MEAN CORPUSCULAR HEMOGLOBIN 27.7 pg (29.0-33.0); MEAN CORPUSCULAR VOLUME 81.4 fl (82.0-101.0); MEAN PLATELET VOLUME 9.8 fl (7.4-10.4); MONOCYTE # 0.7 10^3/ul (0.3-0.9); MONOCYTES % 7.7 % (0.0-11.0); NEUTROPHIL # 5.7 10^3/ul (1.6-7.5); NEUTROPHILS % 60.4 % (39.0-77.0); PLATELET COUNT 409 10^3/UL (140-415); RED BLOOD COUNT 4.41 10^6/ul (4.70-6.10)
[2017-11-15 16:03] LABS: ADD MAN DIFF? NO
[2017-11-15 16:06] LABS: BASOPHIL # 0.1 10^3/ul (0.0-0.1); BASOPHILS % 0.8 % (0.0-2.0); EOSINOPHILS # 0.4 10^3/ul (0.0-0.5); EOSINOPHILS % 4.2 % (0.0-7.0); HEMATOCRIT 38.6 % (42.0-52.0); IMMATURE GRANS #M 0.13 10^3/ul; IMMATURE GRANS % (M) 1.3 %; LYMPHOCYTES # 2.8 10^3/ul (0.8-2.9); LYMPHOCYTES % 27.6 % (15.0-51.0); MEAN CORPUSCULAR HEMOGLOBIN 27.5 pg (29.0-33.0); MEAN CORPUSCULAR HGB CONC 33.7 g/dl (32.0-37.0); MEAN CORPUSCULAR VOLUME 81.6 fl (82.0-101.0); MEAN PLATELET VOLUME 9.8 fl (7.4-10.4); MONOCYTE # 0.9 10^3/ul (0.3-0.9); MONOCYTES % 8.5 % (0.0-11.0); NEUTROPHIL # 5.8 10^3/ul (1.6-7.5); NEUTROPHILS % 57.6 % (39.0-77.0); PLATELET COUNT 438 10^3/UL (140-415); RED BLOOD COUNT 4.73 10^6/ul (4.70-6.10)
[2017-11-15 16:06] LABS: WHITE BLOOD COUNT 10.1 10^3/ul (4.8-10.8)
[2017-11-15 16:32] LABS: VANCOMYCIN,TROUGH 17.9 ug/ml (10.0-20.0)
[2017-11-15] MEDS: CEFTRIAXONE 2 GM/50 ML (PMX) 50 ML IVPB (18:33)
[2017-11-15] MEDS: VANCOMYCIN 750 MG in SOD CHLORIDE 0.9% 150 ML IVPB (20:16)
[2017-11-16] MEDS: ACCU-CHEK XX (01:01)
[2017-11-16] MEDS: VANCOMYCIN 750 MG in SOD CHLORIDE 0.9% 150 ML IVPB ×3 (05:01→20:00)
[2017-11-16] MEDS: metFORMIN 500 MG TAB PO ×2 (08:39→17:16)
[2017-11-16] MEDS: INSULIN GLARGINE [LANTus] (100 UNITS/ML) SYG SC (08:46)
[2017-11-16] MEDS: INSULIN ASPART [NOVOLOG] 3 ML PEN SC ×7 (08:47→20:13)
[2017-11-16] MEDS: MULTIVITAMINS THERAPEUTIC TAB PO (08:51)
[2017-11-16] MEDS: LOSARTAN 25 MG TAB PO (08:51)
[2017-11-16] MEDS: ENOXAPARIN 30 MG/0.3 ML SYG SC (08:52)
[2017-11-16 11:48] LABS: ADD MAN DIFF? NO
[2017-11-16 11:50] LABS: WHITE BLOOD COUNT 8.8 10^3/ul (4.8-10.8)
[2017-11-16 11:50] LABS: BASOPHIL # 0.1 10^3/ul (0.0-0.1); BASOPHILS % 0.9 % (0.0-2.0); EOSINOPHILS # 0.4 10^3/ul (0.0-0.5); EOSINOPHILS % 4.8 % (0.0-7.0); HEMATOCRIT 39.8 % (42.0-52.0); HEMOGLOBIN 13.2 g/dl (14.0-18.0); IMMATURE GRANS % (M) 1.1 %; LYMPHOCYTES # 2.3 10^3/ul (0.8-2.9); LYMPHOCYTES % 25.7 % (15.0-51.0); MEAN CORPUSCULAR HGB CONC 33.2 g/dl (32.0-37.0); MEAN CORPUSCULAR VOLUME 81.4 fl (82.0-101.0); MEAN PLATELET VOLUME 9.9 fl (7.4-10.4); MONOCYTE # 0.7 10^3/ul (0.3-0.9); MONOCYTES % 7.9 % (0.0-11.0); NEUTROPHIL # 5.3 10^3/ul (1.6-7.5); NEUTROPHILS % 59.6 % (39.0-77.0); PLATELET COUNT 438 10^3/UL (140-415); RED BLOOD COUNT 4.89 10^6/ul (4.70-6.10)
[2017-11-16] MEDS: CEFTRIAXONE 2 GM/50 ML (PMX) 50 ML IVPB (18:06)
== END 2017-11-16 21:25 | disposition home or self-care (01) | DRG 872 ==
LOC: E/R 00:19 → 5EC 03:43
PROVIDERS: Family Medicine
DX: A41.9 Sepsis, unspecified organism (principal); L03.115 Cellulitis of right lower limb; N39.0 Urinary tract infection, site not specified; E11.65 Type 2 diabetes mellitus with hyperglycemia; E87.5 Hyperkalemia; E86.0 Dehydration; I10 Essential (primary) hypertension; D50.9 Iron deficiency anemia, unspecified; B96.20 Unspecified Escherichia coli [E. coli] as the cause of diseases classified elsewhere; Z79.4 Long term (current) use of insulin; Z91.14 Patient's other noncompliance with medication regimen
CPT/HCPCS: 71045; 73590; 80048; 80053; 80202; 81001; 82728; 82962; 83036; 83540; 83605; 83735; 84443; 84484; 85025; 85610; 85730; 87040; 87086; 93005; 93971; 99217

== ENCOUNTER → 2017-11-26 | Emergency (ER) | payer OTHER ==
[2017-11-26] MEDS: HYDROCODONE/APAP (10/325) TAB PO (03:25)
== END | disposition home or self-care (01) ==
LOC: E/R 00:51
DX: R60.0 Localized edema (principal); E11.9 Type 2 diabetes mellitus without complications; I10 Essential (primary) hypertension
CPT/HCPCS: 93971; 99284-25

== ENCOUNTER 2017-11-29 20:45 | Emergency (ER) | payer OTHER | END 2017-11-29 22:22 | disposition home or self-care (01) | LOC: FTE 20:45 | DX: Z76.0 Encounter for issue of repeat prescription (principal); E11.9 Type 2 diabetes mellitus without complications; I10 Essential (primary) hypertension; Z79.4 Long term (current) use of insulin | CPT/HCPCS: 99281; Z7502 ==